=== PATIENT | female | born 1940 | race Caucasian/White ===

== ENCOUNTER 2018-03-22 08:27 | Day surgery (SDC) | payer MEDICARE ==
[2018-03-22] MEDS ORDERED: Marcaine 0.5% SDV 10 ML IJ ONE (08:28)
[2018-03-22] MEDS ORDERED: Depo-Medrol 40 MG/ML IM ONE (08:28)
[2018-03-22] MEDS ORDERED: DIPRIVAN 200 MG/20 ML IV ONE (08:28)
--- NOTE | 2018-03-22 11:02 | XRAY ---
Indication: Left SI joint injection. Intraoperative fluoroscopy was provided for 13 seconds. Single lateral digital spot image submitted for interpretation demonstrates single posterior spinal needle tip projecting over the proximal sacrum. Correlate with intraoperative findings/report.
--- NOTE | 2018-03-22 11:12 | XRAY ---
13 seconds fluoroscopy time in surgery for left SI joint injection.
[2018-03-22] MEDS ORDERED: Lactated Ringers 1,000 ML IV ONE (14:43)
== END 2018-03-22 10:05 | disposition home or self-care (01) ==
LOC: SDC-PAIN 08:27
PROVIDERS: ATTEND Psychiatry & Neurology Pain Medicine
DX: M53.3 Sacrococcygeal disorders, not elsewhere classified (principal); J45.909 Unspecified asthma, uncomplicated; I10 Essential (primary) hypertension; E11.9 Type 2 diabetes mellitus without complications; K21.9 Gastro-esophageal reflux disease without esophagitis; Z79.899 Other long term (current) drug therapy
CPT/HCPCS: 27095; 72020; 77002; 82962; 99100; J1030; J2704

== ENCOUNTER 2018-05-17 08:22 | Day surgery (SDC) | payer MEDICARE ==
[2018-05-17] MEDS ORDERED: Depo-Medrol 40 MG/ML IM ONE (08:23)
[2018-05-17] MEDS ORDERED: Xylocaine-Mpf 2% 5 Ml Vial IJ ONE (08:23)
[2018-05-17] MEDS ORDERED: DIPRIVAN 200 MG/20 ML IV ONE (08:23)
[2018-05-17] MEDS ORDERED: Lactated Ringers 1,000 ML IV ONE (12:03)
--- NOTE | 2018-05-17 12:13 | XRAY ---
Indication: Bilateral L4-S1 MBB. Intraoperative fluoroscopy was provided for 30 seconds. Single digital spot image submitted for interpretation demonstrates posterior spinal needle tips projecting over the expected course of the left and right L4-S1 nerve roots. Correlate with intraoperative findings/report.
--- NOTE | 2018-05-17 12:17 | XRAY ---
30 seconds fluoroscopy time in surgery for L4-S1 MBB.
== END 2018-05-17 10:47 | disposition home or self-care (01) ==
LOC: SDC-PAIN 08:22
PROVIDERS: ATTEND Psychiatry & Neurology Pain Medicine
DX: M47.816 Spondylosis without myelopathy or radiculopathy, lumbar region (principal); Z79.899 Other long term (current) drug therapy; E11.9 Type 2 diabetes mellitus without complications; I10 Essential (primary) hypertension
CPT/HCPCS: 64493; 64494; 72020; 77002; 82962; 99100; J1030; J2704

== ENCOUNTER 2018-08-30 09:11 | Day surgery (SDC) | payer MEDICARE ==
[2018-08-30] MEDS ORDERED: Ketamine HCl 50 MG/ML IV ONE (09:12)
[2018-08-30] MEDS ORDERED: Depo-Medrol 40 MG/ML IM ONE (09:12)
[2018-08-30] MEDS ORDERED: DIPRIVAN 200 MG/20 ML IV ONE (09:12)
[2018-08-30] MEDS ORDERED: Marcaine 0.5% SDV 10 ML IJ ONE (09:12)
[2018-08-30] MEDS ORDERED: Lactated Ringers 1,000 ML IV ONE (14:22)
--- NOTE | 2018-08-30 16:16 | XRAY ---
16 seconds fluoroscopy time in surgery for right hip injection.
--- NOTE | 2018-08-31 04:42 | XRAY ---
Indication: Right hip intra-articular injection. Intraoperative fluoroscopy was provided for 16 seconds. A single digital spot image demonstrates needle tip at the lateral margin of the base of the right femoral neck. A small amount of contrast has been injected for needle tip replacement. Correlate with intraoperative findings/report.
== END 2018-08-30 10:50 | disposition home or self-care (01) ==
LOC: SDC-PAIN 09:11
PROVIDERS: ATTEND Psychiatry & Neurology Pain Medicine
DX: M16.11 Unilateral primary osteoarthritis, right hip (principal); E11.9 Type 2 diabetes mellitus without complications; I10 Essential (primary) hypertension; K21.9 Gastro-esophageal reflux disease without esophagitis; J45.909 Unspecified asthma, uncomplicated
CPT/HCPCS: 20610; 73501; 77002; 82962; J1030; J2704; Q9966